=== PATIENT | male | born 1975 | race Hispanic/Latino ===

== ENCOUNTER 2018-09-09 17:23 | Emergency (ER) | payer SELFPAY ==
--- NOTE | 2018-09-09 17:48 | RAD ---
XR Shoulder Lt 3 View STANDARD HISTORY: Fall from roof with left shoulder pain. COMPARISON: None. FINDINGS: There is a AC separation which is at least a grade 2 separation there is no associated frac ture. The glenohumeral joint is unremarkable. IMPRESSION: AC separation.
[2018-09-09] MEDS ORDERED: HYDROcodone/Acetaminophen 5/325 mg Tablet ONE (18:07)
[2018-09-09] MEDS ORDERED: Adacel (T-DAP) 0.5 ML SYRINGE ONE (18:23)
== END 2018-09-09 18:45 | disposition home or self-care (01) ==
LOC: ERS 17:23
DX: S43.102A Unspecified dislocation of left acromioclavicular joint, initial encounter (principal); S01.01XA Laceration without foreign body of scalp, initial encounter; Z23 Encounter for immunization; W17.89XA Other fall from one level to another, initial encounter
CPT/HCPCS: 12001; 90471; 90715